=== PATIENT | male | born 1955 | race Caucasian/White ===

== ENCOUNTER 2022-07-10 07:58 | Emergency (ER) | payer BC, MEDICARE ==
[~2022-07-10] VITALS: Ht 175.3 cm; Wt 79.6 kg
[~2022-07-10 07:58] MED LIST: AMOX1TAB87 PO; BISA-78 PO; POLY119P2 PO
[2022-07-10 08:37] LABS: BASOPHILS # (AUTO) 0.1 X10'3 (0-0.2); BASOPHILS % (AUTO) 0.7 % (0-1); EOSINOPHILS # (AUTO) 0.2 X10'3 (0-0.9); EOSINOPHILS % (AUTO) 1.6 % (0-6); HEMATOCRIT 40.5 % (42.0-52.0); HEMOGLOBIN 13.7 g/dl (14.0-17.9); LYMPHOCYTES # (AUTO) 1.6 X10'3 (1.1-4.8); LYMPHOCYTES % (AUTO) 16.7 % (21-51); MEAN CORPUSCULAR HEMOGLOBIN 31.5 PG (27.0-31.0); MEAN CORPUSCULAR HGB CONC 33.9 g/dL (33.0-36.5); MEAN CORPUSCULAR VOLUME 93.2 FL (78-98); MEAN PLATELET VOLUME 6.5 FL (7.4-10.4); MONOCYTES # (AUTO) 0.5 X10'3 (0-0.9); MONOCYTES % (AUTO) 5.8 % (2-12); NEUTROPHILS # (AUTO) 7.1 X10'3 (1.8-7.7); NEUTROPHILS % (AUTO) 75.2 % (42-75); PLATELET COUNT 313 X10'3 (140-440); RED BLOOD COUNT 4.35 X10'6 (4.70-6.10); RED CELL DISTRIBUTION WIDTH 13.1 % (11.5-14.5); WHITE BLOOD COUNT 9.4 X10'3 (4.5-11.0)
[2022-07-10 08:39] LABS: CLARITY,URINE CLOUDY (Clear); COLOR,URINE YELLOW (Yellow); GLUCOSE, URINE NEGATIVE (Neg); KETONES,URINE TRACE mg/dl (Neg); LEUKOCYTE ESTERASE ,URINE NEGATIVE (Neg); NITRITES, URINE NEGATIVE (Neg); OCCULT BLOOD,URINE NEGATIVE (Neg); PH,URINE 5.5 (4.8-8.0); PROTEIN,URINE TRACE mg/dl (Neg)
[2022-07-10 08:46] LABS: UA COLLECTION TYPE CLN CATCH MIDSTREAM
[2022-07-10 08:47] LABS: HYALINE CASTS >30 /LPF (NEGATIVE)
--- NOTE | 2022-07-10 08:48 | NUR ---
Pt connected to monitoring tech for further observation, no sign n/v or any acute distress noted at this time.
[2022-07-10 08:49] LABS: MUCUS STRANDS MANY /LPF (Neg)
[2022-07-10 08:50] LABS: RBC,URINE 0-2 /HPF (0-2)
[2022-07-10 08:51] LABS: BACTERIA,URINE FEW /HPF (Neg); SQUAMOUS EPITHELIAL CELL,UR FEW /LPF (FEW)
[2022-07-10 08:52] LABS: COARSE GRANULAR CAST 0-3 /LPF (NEGATIVE)
[2022-07-10 09:18] LABS: ALANINE AMINOTRANSFERASE 30 U/L (12-78); ALBUMIN 3.7 G/DL (3.4-5.0); ALBUMIN/GLOBULIN RATIO 0.8 (1.1-1.5); ALKALINE PHOSPHATASE 71 IU/L (46-116); ANION GAP 13 (8-16); ASPARTATE AMINO TRANSFERASE 19 U/L (10-37); BILIRUBIN,TOTAL 0.5 MG/DL (0.1-1.0); BLOOD UREA NITROGEN 17 MG/DL (7-18); BUN/CREATININE RATIO 16.7 (5.4-32.0); CALCIUM 9.2 MG/DL (8.5-10.1); CHLORIDE 103 MMOL/L (99-107); CREATININE 1.02 MG/DL (0.60-1.10); GLUCOSE 123 MG/DL (70-104); LIPASE 77 U/L (73-393); POTASSIUM 3.8 MMOL/L (3.5-5.1); SODIUM 140 MMOL/L (135-145); TOTAL PROTEIN 8.4 G/DL (6.4-8.2); eGFR 73 ML/MIN
[2022-07-10] MEDS ORDERED: normal saline 1000ML IV soln IVB ONE (09:55)
[2022-07-10] MEDS ORDERED: ondansetron/PF 4mg/2ml inj IV ONE (09:55)
[2022-07-10] MEDS ORDERED: morphine 4 MG/ML inj SYRINge IV PRN (09:55)
[2022-07-10] MEDS: diatr meglu/diatrizoate 30ml oral sol.-(3 dose) bottle PO SCH ×3 (10:43→12:34)
[2022-07-10] MEDS ORDERED: iohexol 350MG/ML 100ml bottle IV ONE (12:10)
[2022-07-10] MEDS ORDERED: sucralfate 1 gm tablet PO ONE (15:25)
[2022-07-10] MEDS ORDERED: LIDOcaine Viscous 15ml cup MM ONE (15:25)
[2022-07-10] MEDS ORDERED: mag hydrox/Alum hydrox/simeth 30ml oral suspension PO ONE (15:25)
[2022-07-10] MEDS ORDERED: SUCR1TAB34 PO (15:59)
[2022-07-10] MEDS ORDERED: HYDR-3972 PO (15:59)
--- NOTE | 2022-07-10 16:20 | NUR ---
Pt d/c home via ambulatory in good condition,instructions given, pt verbalized understanding.
[2022-07-10 16:41] VITALS: BP 138/74
== END 2022-07-10 16:43 | disposition home or self-care (01) ==
LOC: ER 08:00
DX: R10.10 Upper abdominal pain, unspecified (principal); Z88.5 Allergy status to narcotic agent
CPT/HCPCS: 36415; 74177; 80053; 81001; 83690; 85025; 87088; 96374; 99285; J2405; J3490; J7030; Q9963; Q9967